=== PATIENT | female | born 1965 ===

== ENCOUNTER 2018-04-08 20:00 | Emergency (ER) | payer OTHER ==
[2018-04-08 20:05] VITALS: TEMP 98.1
[2018-04-08] MEDS ORDERED: Morphine 4 MG/ML VIAL IV STA (20:17)
[2018-04-08] MEDS ORDERED: Labetalol 5 mg/ml Inj 20ML IV STA (20:17)
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
[2018-04-08 20:34] LABS: BASO % 0.4 % (0.0-2.0); EOS # 0.2 K/uL (0.0-0.7); HEMOGLOBIN 13.5 g/dL (11.0-16.0); LYMPH # 2.6 K/uL (1.0-4.3); LYMPH % 32.2 % (20.0-40.0); MEAN CELL VOLUME 68.2 fL (81.0-99.0); MEAN CORPUSCULAR HEMOGLOBIN 21.9 pg (27.0-31.0); MEAN CORPUSCULAR HGB CONC 32.1 g/dL (33.0-37.0); MEAN PLATELET VOLUME 7.9 fL (7.2-11.7); MONO # 0.6 K/uL (0.0-0.8); MONO % 7.1 % (0.0-10.0); NEUT # 4.7 K/uL (1.8-7.0); NEUT % 58.3 % (50.0-75.0); NRBC % 0.2 % (0.0-2.0); RBC 6.18 Mil/uL (3.80-5.20); RED CELL DISTRIBUTION WIDTH 14.3 % (11.5-14.5)
[2018-04-08] MEDS ORDERED: Labetalol 25mg/5ml Syringe ONE (20:35)
[2018-04-08 20:46] LABS: ALB/GLOB RATIO 1.1 (1.0-2.1); ALBUMIN 4.3 g/dL (3.5-5.0); ALT/SGPT 15 U/L (9-52); AST/SGOT 24 U/L (14-36); BLOOD UREA NITROGEN 17 mg/dL (7-17); GFR AFRICAN-AMERICAN > 60; GFR NON-AFRICAN AMERICAN > 60
--- NOTE | 2018-04-08 22:13 | CT ---
EXAM: CT Head Without Intravenous Contrast CLINICAL HISTORY: 53 years old, female; Injury or trauma; Fall; Initial encounter; Abrasion; Head, generalized; Additional info: Dizziness TECHNIQUE: Axial computed tomography images of the head/brain without intravenous contrast. All CT scans at this facility use one or more dose reduction techniques, viz.: automated exposure control; ma/kV adjustment per patient size (including targeted exams where dose is matched to indication; i.e. head); or iterative reconstruction technique. Coronal and sagittal reformatted images were created and reviewed. COMPARISON: No relevant prior studies available. FINDINGS: Brain: Unremarkable. No significant white matter disease. No edema. No intracranial mass, mass effect, or midline shift. Ventricles: Unremarkable. No ventriculomegaly. Bones/joints: Unremarkable. No acute fracture. Soft tissues: Unremarkable. Sinuses: Unremarkable as visualized. No acute sinusitis. Mastoid air cells: Unremarkable as visualized. No mastoid effusion. IMPRESSION: No acute intracranial abnormality.
--- NOTE | 2018-04-08 22:16 | CT ---
EXAM: CT Cervical Spine Without Intravenous Contrast CLINICAL HISTORY: 53 years old, female; Pain and injury or trauma; Fall; Initial encounter; Abrasion; Neck pain TECHNIQUE: Axial computed tomography images of the cervical spine without intravenous contrast. All CT scans at this facility use one or more dose reduction techniques, viz.: automated exposure control; ma/kV adjustment per patient size (including targeted exams where dose is matched to indication; i.e. head); or iterative reconstruction technique. Coronal and sagittal reformatted images were created and reviewed. COMPARISON: No relevant prior studies available. FINDINGS: Vertebrae: Reversal normal cervical lordosis. No lytic or blastic lesions. No fracture. Discs/spinal canal/neural foramina: Lumbar spinal degenerative changes. Soft tissues: Unremarkable. Lung apices: Unremarkable as visualized. IMPRESSION: No acute cervical spine fracture.
[2018-04-08 22:46] VITALS: BP 172/87; PULSE 84; RESP 18
--- NOTE | 2018-04-09 08:02 | RAD ---
Chest x-ray single frontal view History: Chest pain. Comparison: 04/08/2018 Findings: Biapical pleural thickening with upper lobe granulomatous changes. Mild venous congestion. Right hilar prominence. Patchy increased markings at the left lung base. Small nodular density in the lateral aspect of the left midlung zone. Tortuous ectatic aorta. Mild cardiomegaly. Degenerative changes in spine. Impression Biapical pleural thickening with upper lobe granulomatous changes. Mild venous congestion. Right hilar prominence. Patchy increased markings at the left lung base. Small nodular density in the lateral aspect of the left midlung zone. Tortuous ectatic aorta. Mild cardiomegaly.
[2018-04-10 07:44] VITALS: O2SAT 99
--- NOTE | 2018-04-11 13:38 | CARD ---
APPROVED REPORT EKG Measurement Heart [id number] <Conclusion> Normal sinus rhythm Cannot rule out Anterior infarct, age undetermined Abnormal ECG
== END 2018-04-08 22:48 | disposition home or self-care (01) ==
LOC: C.ER 20:00
DX: S06.0X0A Concussion without loss of consciousness, initial encounter (principal); S16.1XXA Strain of muscle, fascia and tendon at neck level, initial encounter; V49.9XXA Car occupant (driver) (passenger) injured in unspecified traffic accident, initial encounter; I10 Essential (primary) hypertension
CPT/HCPCS: 70450; 71045; 72125; 80053; 84484; 85025; 96374; 99285; J1885